=== PATIENT | female | born 1985 | race Caucasian/White ===

== ENCOUNTER 2019-01-02 21:40 | Inpatient (IN) | payer OTHER ==
[~2019-01-02] VITALS: Ht 170.2 cm; Wt 98.1 kg
[~2019-01-02 21:40] MED LIST: IBUP-1222 PO
[2019-01-02] MEDS ORDERED: OXYTOCIN 30U/ 0.9% NaCL 500ML 500 ML IV ONE (21:55)
[2019-01-02] MEDS ORDERED: LACTATED RINGERS 1,000 ML IV SCH ×2 (21:55→23:05)
[2019-01-02] MEDS ORDERED: FENTANYL PF 100 MCG/2ML IVPush PRN (22:00)
[2019-01-02] MEDS ORDERED: TERBUTALINE 1 MG/ML, 1ML SQ PRN (22:00)
[2019-01-02] MEDS ORDERED: TERBUTALINE 1 MG/ML, 1ML IVPush PRN (22:00)
[2019-01-02] MEDS ORDERED: ONDANSETRON 2MG/ML, 2ML IVPush PRN (22:00)
[2019-01-02] MEDS ORDERED: FENTANYL PF 100 MCG/2ML IV PRN (22:00)
[2019-01-02] MEDS ORDERED: NEWBORN KIT ONE (22:02)
[2019-01-02] MEDS ORDERED: MISOPROSTOL 200 MCG TABLET ONE (22:02)
[2019-01-02] MEDS ORDERED: LIDOCAINE 1%, 20ML ONE (22:02)
[2019-01-02] MEDS ORDERED: OXYTOCIN 30U/ 0.9% NaCL 500ML 500 ML ONE (22:03)
[2019-01-02 22:14] LABS: BASOPHILS # (AUTO) 0.01 x10^3/uL (0-0.1); BASOPHILS % (AUTO) 0 % (0-1); EOSINOPHILS # (AUTO) 0.24 x10^3/uL (0-0.4); EOSINOPHILS % (AUTO) 3 % (1-7); LYMPHOCYTES # (AUTO) 1.35 x10^3/uL (1-3.4); LYMPHOCYTES % (AUTO) 15 % (22-44); MD NO; MEAN CORPUSCULAR HEMOGLOBIN 29.4 pg (27.0-34.8); MEAN CORPUSCULAR HGB CONC 32.9 g/dL (32.4-35.8); MEAN CORPUSCULAR VOLUME 89.5 fL (80-100); MEAN PLATELET VOLUME 8.9 fL (7.4-10.4); MONOCYTES # (AUTO) 0.69 x10^3/uL (0.2-0.8); MONOCYTES % (AUTO) 8 % (2-9); NEUTROPHILS # (AUTO) 6.84 x10^3/uL (1.8-6.8); NEUTROPHILS % (AUTO) 75 % (42-75); PLATELET COUNT 186 x10^3/uL (130-400); RED BLOOD COUNT 4.35 x10^6/uL (3.82-5.3); RED CELL DISTRIBUTION WIDTH 16.2 % (9.6-15.2)
[2019-01-02] MEDS ORDERED: FENTANYL/BUPIV./NS/PF 250 ML EPIDCONT SCH (23:05)
[2019-01-02] MEDS ORDERED: EPHEDRINE 50 MG/ML, 1ML IVPush PRN (23:30)
[2019-01-02] MEDS ORDERED: LACTATED RINGERS 1,000 ML IVBOLUS PRN (23:30)
[2019-01-02] MEDS ORDERED: BUPIVACAINE 0.25% ONE (23:33)
[2019-01-03] MEDS: OXYTOCIN 30U/ 0.9% NaCL 500ML 500 ML IV SCH ×3 (02:08→21:07)
[2019-01-03] MEDS ORDERED: ACETAMINOPHEN 325 MG TABLET PO PRN ×2 (02:30)
[2019-01-03] MEDS ORDERED: ONDANSETRON 2MG/ML, 2ML IV PRN (02:30)
[2019-01-03] MEDS ORDERED: MISOPROSTOL 200 MCG TABLET PR PRN (02:30)
[2019-01-03] MEDS ORDERED: SIMETHICONE 80 MG CHEW TAB PO PRN (02:30)
[2019-01-03] MEDS ORDERED: OXYcodone/APAP 5/325MG TABLET PO PRN ×2 (02:30)
[2019-01-03] MEDS ORDERED: METHYLERGONOVINE 0.2 MG/ML IM PRN (02:30)
[2019-01-03] MEDS ORDERED: OXYTOCIN 30U/ 0.9% NaCL 500ML 500 ML ONE (02:59)
[2019-01-03 04:45] VITALS: BP 122/70
[2019-01-03] MEDS: PRENATAL VIT/IRON/FA 1 EACH TABLET PO SCH (07:30)
[2019-01-03] MEDS: DOCUSATE 100 MG CAPSULE PO PRN (07:31)
[2019-01-03 07:45] VITALS: BP 108/63
[2019-01-03] MEDS: IBUPROFEN 600 MG TABLET PO PRN ×2 (10:01→17:37)
[2019-01-03 10:37] LABS: BASOPHILS # (AUTO) 0.03 x10^3/uL (0-0.1); BASOPHILS % (AUTO) 0 % (0-1); EOSINOPHILS % (AUTO) 0 % (1-7); LYMPHOCYTES # (AUTO) 1.11 x10^3/uL (1-3.4); LYMPHOCYTES % (AUTO) 9 % (22-44); MD NO; MEAN CORPUSCULAR HEMOGLOBIN 29.1 pg (27.0-34.8); MEAN CORPUSCULAR HGB CONC 32.9 g/dL (32.4-35.8); MEAN CORPUSCULAR VOLUME 88.5 fL (80-100); MEAN PLATELET VOLUME 8.5 fL (7.4-10.4); MONOCYTES % (AUTO) 6 % (2-9); NEUTROPHILS # (AUTO) 10.38 x10^3/uL (1.8-6.8); NEUTROPHILS % (AUTO) 85 % (42-75); PLATELET COUNT 159 x10^3/uL (130-400); RED BLOOD COUNT 3.95 x10^6/uL (3.82-5.3)
[2019-01-03] MEDS ORDERED: DIPH,PERTUSS(ACELL),TET VAC/PF NC IM-VACC ONE (20:06)
[2019-01-03 20:08] VITALS: BP 105/66
[2019-01-04 00:58] VITALS: BP 105/65
[2019-01-04] MEDS: IBUPROFEN 600 MG TABLET PO PRN ×3 (01:53→16:22)
[2019-01-04] MEDS: PRENATAL VIT/IRON/FA 1 EACH TABLET PO SCH (07:14)
[2019-01-04] MEDS: DOCUSATE 100 MG CAPSULE PO PRN (07:14)
[2019-01-04 07:55] VITALS: BP 112/66
[2019-01-04] MEDS: OXYTOCIN 30U/ 0.9% NaCL 500ML 500 ML IV SCH ×2 (08:27→18:27)
[2019-01-04 19:05] VITALS: BP 116/71
[2019-01-05] MEDS: OXYTOCIN 30U/ 0.9% NaCL 500ML 500 ML IV SCH (04:27)
[2019-01-05 08:44] VITALS: BP 112/73
[2019-01-05] MEDS: DOCUSATE 100 MG CAPSULE PO PRN (08:46)
[2019-01-05] MEDS: PRENATAL VIT/IRON/FA 1 EACH TABLET PO SCH (08:46)
[2019-01-05] MEDS: IBUPROFEN 600 MG TABLET PO PRN (12:04)
== END 2019-01-05 14:25 | disposition home or self-care (01) | DRG 807 ==
LOC: LDOP 21:40 → LDIP 22:08 → 2NW 01-03 04:36
PROVIDERS: ADMIT Obstetrics & Gynecology; ATTEND Obstetrics & Gynecology
PROC: 10E0XZZ Delivery of Products of Conception, External Approach (ICD-10-PCS; principal; 2019-01-02)
PROC: 0KQM0ZZ Repair Perineum Muscle, Open Approach (ICD-10-PCS; 2019-01-02)
PROC: 3E0R3BZ Introduction of Anesthetic Agent into Spinal Canal, Percutaneous Approach (ICD-10-PCS; 2019-01-02)
PROC: 00HU33Z Insertion of Infusion Device into Spinal Canal, Percutaneous Approach (ICD-10-PCS; 2019-01-02)
PROC: 10907ZC Drainage of Amniotic Fluid, Therapeutic from Products of Conception, Via Natural or Artificial Opening (ICD-10-PCS; 2019-01-02)
DX: O36.63X0 Maternal care for excessive fetal growth, third trimester, not applicable or unspecified (principal); Z37.0 Single live birth; O77.0 Labor and delivery complicated by meconium in amniotic fluid; Z3A.39 39 weeks gestation of pregnancy; O70.1 Second degree perineal laceration during delivery
CPT/HCPCS: 36415; 82803; 85025; 86850; 86900; G0378; J2590; J7120

== ENCOUNTER 2019-07-26 15:38 | Inpatient (IN) | payer OTHER ==
[~2019-07-26] VITALS: Ht 172.7 cm; Wt 80.9 kg
--- NOTE | 2019-07-26 15:57 | NUR ---
FIRST CONTACT WITH PT. PT WENT FROM DR LERMA FOR RT UPPER/LATERAL BREAST LUMP/POSSIBLE ABSCESS, ONSET EARLY JUNE. PT DENIES ANY OTHER SX. PT'S AOX4. RESPS EVEN AND UNLABORED. BP/SPO2 MONITORS IN PLACE. CALL LIGHT WITHIN REACH.
--- NOTE | 2019-07-26 16:36 | NUR ---
EDMD AT BEDSIDE TO EVALUATE AT THIS TIME.
[2019-07-26] MEDS ORDERED: VANCOMYCIN PER PHARMACY MC PRN ×2 (17:00→20:30)
[2019-07-26] MEDS ORDERED: SODIUM CHLORIDE FLUSH 10ML SYR IVF ONE (17:00)
[2019-07-26] MEDS ORDERED: VANCOMYCIN 2,000 MG in SODIUM CHLORIDE 0.9% 500 ML IV ONE (17:30)
--- NOTE | 2019-07-26 17:35 | NUR ---
US AT BEDSIDE AT THIS TIME.
--- NOTE | 2019-07-26 17:55 | NUR ---
PT AMB TO BR WITH STEADY GAIT.
--- NOTE | 2019-07-26 18:26 | NUR ---
VANCO INFUSING AT THIS TIME. NO BC NEEDED PER EDMD. PT TOLERATED WELL.
--- NOTE | 2019-07-26 18:30 | NUR ---
PT REQUESTING BREAST PUMP AT THIS TIME. THIS RN CALLED L&D.
--- NOTE | 2019-07-26 18:52 | NUR ---
REPORT GIVEN TO ALIDA ANDERSON.
--- NOTE | 2019-07-26 19:02 | NUR ---
PATIENT GIVEN BREAST PUMP AND INSTRUCTIONS ON PROPER TECHNIQUE. PATIENT VERBALIZED UNDERSTANDING. NO NOTED ACUTE DISTRESS. PATIENT TAKEN OFF MONITOR TO IMPROVE PATIENT COMFORT WHILE PUMPING. UPDATED ON PLAN OF CARE. NO NOTED FURTHER NEEDS AT THIS TIME.
[2019-07-26] MEDS ORDERED: SODIUM CHLORIDE FLUSH 10ML SYR IVF PRN (19:30)
--- NOTE | 2019-07-26 19:35 | NUR ---
ADMITTING PROVIDER AT BEDSIDE WITH PATIENT
--- NOTE | 2019-07-26 19:52 | NUR ---
PATIENT GIVEN 4 OZ OF WATER, ADMITTING MD APPROVED. SURGERY IS CURRENTLY UNAWARE OF PATIENT. PATIENT'S PLAN OF CARE WILL BE TO ADMIT TO SURG FLOOR PRIOR TO SURGERY
--- NOTE | 2019-07-26 19:52 | NUR ---
UPDATED PATIENT ON PLAN OF CARE. PATIENT DENIES ANY FURTHER NEEDS. ICE PACKS PROVIDED FOR RIGHT BREAST, ICE PROVIDED FOR BREAST MILK.
[2019-07-26] MEDS ORDERED: ONDANSETRON 2MG/ML, 2ML IVPush PRN (20:30)
[2019-07-26] MEDS ORDERED: ACETAMINOPHEN 325 MG TABLET PO PRN (20:30)
[2019-07-26] MEDS ORDERED: IBUPROFEN 600 MG TABLET PO PRN (20:30)
[2019-07-26 20:45] VITALS: BP 111/63
[2019-07-26] MEDS ORDERED: PHARMACOKINETIC MONITORING MC PRN (23:30)
[2019-07-27 02:40] VITALS: BP 110/60
[2019-07-27 05:57] LABS: BASOPHILS # (AUTO) 0.02 x10^3/uL (0-0.1); BASOPHILS % (AUTO) 0 % (0-1); EOSINOPHILS # (AUTO) 0.25 x10^3/uL (0-0.4); EOSINOPHILS % (AUTO) 4 % (1-7); LYMPHOCYTES % (AUTO) 23 % (22-44); MD NO; MEAN CORPUSCULAR HEMOGLOBIN 28.6 pg (27.0-34.8); MEAN CORPUSCULAR HGB CONC 33.8 g/dL (32.4-35.8); MEAN CORPUSCULAR VOLUME 84.6 fL (80-100); MEAN PLATELET VOLUME 8.4 fL (7.4-10.4); MONOCYTES # (AUTO) 0.61 x10^3/uL (0.2-0.8); MONOCYTES % (AUTO) 9 % (2-9); NEUTROPHILS # (AUTO) 4.42 x10^3/uL (1.8-6.8); NEUTROPHILS % (AUTO) 64 % (42-75); PLATELET COUNT 246 x10^3/uL (130-400); RED BLOOD COUNT 4.68 x10^6/uL (3.82-5.3); RED CELL DISTRIBUTION WIDTH 13.4 % (9.6-15.2)
[2019-07-27 05:58] LABS: ANION GAP 5 mmol/L (5-15); CALCIUM 10.9 mg/dL (8.5-10.1); CHLORIDE 110 mmol/L (98-107); CREATININE 0.75 mg/dL (0.55-1.02)
[2019-07-27] MEDS ORDERED: VANCOMYCIN 1,600 MG in SODIUM CHLORIDE 0.9% 250 ML IV SCH (06:30)
[2019-07-27 07:22] VITALS: BP 101/62
[2019-07-27] MEDS ORDERED: BUPIVACAINE/PF 0.25% ONE (12:20)
[2019-07-27] MEDS ORDERED: FENTANYL PF 100 MCG/2ML ONE (12:27)
[2019-07-27] MEDS ORDERED: MIDAZOLAM 1 MG/ML, 2ML ONE (12:27)
[2019-07-27] MEDS ORDERED: LIDOCAINE-MPF 2% ,5ML ONE (12:27)
[2019-07-27] MEDS ORDERED: DEXAMETHASONE 4 MG/ML, 1ML ONE (12:27)
[2019-07-27] MEDS ORDERED: ROCURONIUM 10MG/ML,5ML ONE (12:27)
[2019-07-27] MEDS ORDERED: GLYCOPYRROLATE 0.2MG/1ML, 5ML ONE (12:27)
[2019-07-27] MEDS ORDERED: PROPOFOL 10 MG/ML, 20ML ONE (12:27)
[2019-07-27] MEDS ORDERED: CHLORHEXIDINE 15 ML UDC ONE (12:41)
[2019-07-27] MEDS ORDERED: HALOPERIDOL 5 MG/ML IV PRN (13:00)
[2019-07-27] MEDS ORDERED: ONDANSETRON 2MG/ML, 2ML IVPush PRN (13:00)
[2019-07-27] MEDS ORDERED: MEPERIDINE/PF 25MG/0.5ML IVPush PRN (13:00)
[2019-07-27] MEDS ORDERED: LORazepam 2 MG/ML, 1ML IVPush PRN (13:00)
[2019-07-27] MEDS ORDERED: METOCLOPRAMIDE 5 MG/ML, 2ML IVPush PRN (13:00)
[2019-07-27] MEDS ORDERED: OXYcodone 5 MG/5 ML ORAL.SOL UDC PO PRN (13:00)
[2019-07-27] MEDS ORDERED: EPHEDRINE 50 MG/ML, 1ML IVPush PRN (13:00)
[2019-07-27] MEDS ORDERED: DIAZEPAM 5 MG/ML, 2ML IVPush PRN (13:00)
[2019-07-27] MEDS ORDERED: FENTANYL PF 100 MCG/2ML IV PRN (13:00)
[2019-07-27] MEDS ORDERED: hydrALAzine 20 MG/ML, 1ML IV PRN (13:00)
[2019-07-27] MEDS ORDERED: HYDROmorphone 1 MG/ML, 1ML INJ IVPush PRN (13:00)
[2019-07-27] MEDS ORDERED: LABETALOL 5MG/ML, 20ML IV PRN (13:00)
[2019-07-27] MEDS ORDERED: KETOROLAC 30 MG/1 ML IVPush PRN (13:00)
[2019-07-27] MEDS ORDERED: DIPHENHYDRAMINE 50 MG/ML, 1ML IVPush PRN (13:00)
[2019-07-27] MEDS ORDERED: EPHEDRINE 50 MG/ML, 1ML IM PRN (13:00)
[2019-07-27] MEDS ORDERED: ACETAMINOPHEN 325 MG TABLET PO PRN (13:00)
[2019-07-27] MEDS ORDERED: MIDAZOLAM 1 MG/ML, 2ML IV PRN (13:00)
[2019-07-27] MEDS ORDERED: HYDROcodone/APAP 7.5-325MG/15ML UDC PO PRN (13:00)
[2019-07-27] MEDS ORDERED: morphine SULFATE 10 MG/ML, 1ML IVPush PRN (13:00)
[2019-07-27] MEDS ORDERED: ALBUTEROL/IPRATROPIUM 2.5MG/0.5MG, 3 ML NPPB PRN (13:00)
[2019-07-27] MEDS ORDERED: ONDANSETRON 2MG/ML, 2ML ONE (13:01)
[2019-07-27] MEDS ORDERED: METHOCARBAMOL 1,000 MG in DEXTROSE 5% 100 ML IV PRN (13:30)
[2019-07-27 14:26] VITALS: BP 122/79
[2019-07-27] MEDS ORDERED: CLIN150C14 PO (15:20)
== END 2019-07-27 18:10 | disposition home or self-care (01) | DRG 601 ==
LOC: ED 19:26 → EDIP 19:32 → 4NE 20:18
PROVIDERS: ADMIT Family Medicine; ATTEND Family Medicine
PROC: BH40ZZZ Ultrasonography of Right Breast (ICD-10-PCS; 2019-07-27)
PROC: 0H9T3ZX Drainage of Right Breast, Percutaneous Approach, Diagnostic (ICD-10-PCS; principal; 2019-07-27 13:00)
DX: N61.1 Abscess of the breast and nipple (principal); Z88.1 Allergy status to other antibiotic agents; Z80.3 Family history of malignant neoplasm of breast
CPT/HCPCS: 36415; J3490; 76642; 80048; 85025; 87070; 87075; 87077; 87102; 87205; 87635; G0378; J1100; J2250; J2405; J2704; J3010; J3370; J7040; J7050

== ENCOUNTER → 2019-08-23 | Outpatient (CLI) | payer OTHER ==
[~2019-08-23] MED LIST changes: +CLIN150C14 PO; +PREN1TAB10 PO
== END | disposition home or self-care (01) ==
LOC: CFH 09:33
PROVIDERS: ATTEND Student in an Organized Health Care Education/Training Program
DX: N61.1 Abscess of the breast and nipple (principal)
CPT/HCPCS: 76642; 77066; G0279

== ENCOUNTER 2019-08-30 11:38 | Day surgery (SDC) | payer OTHER ==
[~2019-08-30] VITALS: Ht 172.7 cm; Wt 78.4 kg
[~2019-08-30 11:38] MED LIST changes: +BUPIVACAINE/PF-EPI 0.5% 1:200K ONE; +EPHEDRINE 50 MG/ML, 1ML IVPush PRN; +FENTANYL PF 100 MCG/2ML IV PRN; +HYDROmorphone 1 MG/ML, 1ML INJ IVPush PRN; +LABETALOL 5MG/ML, 20ML IV PRN; +ONDANSETRON 2MG/ML, 2ML IVPush PRN; +OXYcodone 5 MG/5 ML ORAL.SOL UDC PO PRN; +PROMETHAZINE 25 MG/ML, 1ML IVPush PRN; +hydrALAzine 20 MG/ML, 1ML IV PRN
[2019-08-30] MEDS ORDERED: CHLORHEXIDINE 15 ML UDC MM STA (11:48)
[2019-08-30] MEDS ORDERED: LIDOCAINE-MPF 1%, 2ML INFIL STA (11:48)
[2019-08-30] MEDS ORDERED: ACETAMINOPHEN 500 MG TABLET PO STA (11:50)
[2019-08-30 11:58] VITALS: BP 104/68
[2019-08-30] MEDS: LACTATED RINGERS 1,000 ML IV SCH ×2 (12:14→12:26)
[2019-08-30 12:20] LABS: HCG UR SG 1.022 (1.003-1.030)
[2019-08-30] MEDS ORDERED: Clindamycin (12:23)
[2019-08-30] MEDS ORDERED: MIDAZOLAM 1 MG/ML, 2ML ONE (13:17)
[2019-08-30] MEDS ORDERED: FENTANYL PF 100 MCG/2ML ONE (13:17)
[2019-08-30] MEDS ORDERED: PROPOFOL 10 MG/ML, 20ML ONE (13:44)
[2019-08-30] MEDS ORDERED: LIDOCAINE-MPF 2% ,5ML ONE (13:44)
[2019-08-30] MEDS ORDERED: KETOROLAC 30 MG/1 ML ONE (13:44)
[2019-08-30] MEDS ORDERED: DEXAMETHASONE 4 MG/ML, 1ML ONE (13:44)
[2019-08-30] MEDS ORDERED: ONDANSETRON 2MG/ML, 2ML ONE (13:44)
[2019-08-30] MEDS ORDERED: CEFAZOLIN 1,000 MG ONE (13:46)
== END 2019-08-30 17:45 | disposition home or self-care (01) ==
LOC: OUT 11:38
PROVIDERS: ATTEND Surgery
DX: N61.1 Abscess of the breast and nipple (principal); Z11.59 Encounter for screening for other viral diseases; Z79.899 Other long term (current) drug therapy; Z88.8 Allergy status to other drugs, medicaments and biological substances; Z98.890 Other specified postprocedural states
CPT/HCPCS: 19020; 36415; 81025; 87070; 87075; 87077; 87205; 87635; 88305; J0690; J1100; J1885; J2250; J2405; J2704; J3010; J7120; 87186